=== PATIENT | female | born 1970 | race Native Hawaiian/Other Pacific Islander ===

== ENCOUNTER 2017-12-13 09:36 | Emergency (ER) | payer MEDICAID, OTHER ==
--- NOTE | 2017-12-13 10:12 | C.PDOC ---
Time Seen by Provider: 12/13/17 09:56 Chief Complaint (Nursing): Back Pain Past Medical History Vital Signs: Last Vital Signs Temp 97.5 F L 12/13/17 09:39 Pulse 68 12/13/17 09:39 Resp 17 12/13/17 09:39 BP 189/95 H 12/13/17 09:39 Pulse Ox 98 12/13/17 09:39 - Social History Hx Alcohol Use: No Hx Substance Use: No ED Course And Treatment O2 Sat by Pulse Oximetry: 98 Disposition - Disposition
--- NOTE | 2017-12-13 11:18 | RAD ---
PROCEDURE: Radiographs of the Lumbar Spine. HISTORY: back pain without injury COMPARISON: None available. FINDINGS: BONES: Alignment appears satisfactory. No listhesis. No acute displaced fracture identified. DISC SPACES: Unremarkable. OTHER FINDINGS: None. IMPRESSION: No acute displaced fracture or subluxation identified.
--- NOTE | 2017-12-13 11:19 | C.PDOC ---
History Of Present Illness 47 y/o female with hx of Ulcer that causes her abdominal pain intermittently, presents to ED stating she had pain in neck and upper back 1 week and a half ago. Pt states pain was aching and caused discomfort. She saw her PMD, , 5 days ago; she started taking naprosyn with no relief. Pt states she went for acupuncture 1 day ago and the pain in neck and upper back was improved. Pt currently complains of constant pain in lower back that radiates to right hip. Denies weakness or numbness in the leg. She has no bladder or bowel changes or saddle anesthesia. As per sister, patient's mother 2 years ago and since then the patient has been depressed, experiencing trouble eating and sleeping. She has lost a lot of weight. She no longer gets a menstrual cycle. She has been experiencing SOB on exertion for the past year. Time Seen by Provider: 12/13/17 09:56 Chief Complaint (Nursing): Back Pain History Per: Patient History/Exam Limitations: no limitations Onset/Duration Of Symptoms: Days (11) Current Symptoms Are (Timing): Still Present Quality Of Discomfort: Aching Previous Symptoms: Neck Pain Associated Symptoms: None Recent travel outside of the [place]: No Past Medical History Reviewed: Historical Data, Nursing Documentation, Vital Signs Vital Signs: Last Vital Signs Temp 98.7 F 12/13/17 14:34 Pulse 72 12/13/17 14:34 Resp 18 12/13/17 14:34 BP 163/97 H 12/13/17 14:34 Pulse Ox 100 12/13/17 14:34 - Medical History PMH: Gastritis Other PMH: Ulcer disease Surgical History: No Surg Hx Family History: States: No Known Family Hx - Social History Hx Alcohol Use: No Hx Substance Use: No Review Of Systems Constitutional: Negative for: Fever Cardiovascular: Negative for: Chest Pain Gastrointestinal: Negative for: Nausea, Vomiting, Abdominal Pain, Diarrhea Musculoskeletal: Positive for: Back Pain (lower; radiates to hip) Neurological: Negative for: Weakness, Numbness Physical Exam - Physical Exam Appears: Non-toxic, Other (crying while laying in bed; thin; frail looking; depressed ) Skin: Normal Color, Warm, Dry Head: Atraumatic, Normacephalic Eye(s): bilateral: Normal Inspection Oral Mucosa: Moist Neck: Supple Chest: Symmetrical, No Tenderness Cardiovascular: Rhythm Regular Respiratory: Normal Breath Sounds, No Rales, No Rhonchi, No Wheezing Back: Other (Midline lower back tenderness ) Extremity: Normal ROM (hip; no weakness or sensory lose), No Tenderness, Other ( reflexes hyperreflexia) Neurological/Psych: Oriented x3, Normal Speech, Normal Cognition ED Course And Treatment - Laboratory Results Result Diagrams: 12/13/17 11:17 12/13/17 11:17 Lab Interpretation: Abnormal Interpretation Of Abnormal: CPK 657 O2 Sat by Pulse Oximetry: 98 (RA) Pulse Ox Interpretation: Normal - Other Rad Lumbar Spine X-Ray X-Ray: Viewed By Me, Read By Radiologist Interpretation: PROCEDURE: Radiographs of the Lumbar Spine. HISTORY: back pain without injury. COMPARISON: None available. FINDINGS: BONES: Alignment appears satisfactory. No listhesis. No acute displaced fracture identified. DISC SPACES: Unremarkable. OTHER FINDINGS: None. IMPRESSION: No acute displaced fracture or subluxation identified. Progress Note: I requested evaluation by crisis for possible depression but patient refused to speak with the counselor. She was provided Dr Velázquez's card and advised to call him. Reevaluation Time: 14:50 Reassessment Condition: Improved (Much better after Toradol) Medical Decision Making Medical Decision Making: Ordered Blood work, X-ray of lumber spine and LS spine, and urinalysis. Disposition Counseled Patient/Family Regarding: Studies Performed, Diagnosis, Need For Followup, Rx Given - Disposition Referrals: Shaik Shin MD [Staff Provider] - Disposition: HOME/ ROUTINE Disposition Time: 14:54 Condition: IMPROVED Prescriptions: Cyclobenzaprine HCl 5 mg PO TID PRN #30 tablet PRN Reason: Muscle Spasm Ketorolac Tromethamine [Toradol] 10 mg PO QID PRN #20 tab PRN Reason: Pain, Moderate (4-7) Instructions: Acute Low Back Pain (ED) Forms: [facility] (Dominican) - Clinical Impression Clinical Impression: Low back pain - Scribe Statement The provider has reviewed the documentation as recorded by the Scribe Sarah Paul All medical record entries made by the Scribe were at my direction and personally dictated by me. I have reviewed the chart and agree that the record accurately reflects my personal performance of the history, physical exam, medical decision making, and the department course for this patient. I have also personally directed, reviewed, and agree with the discharge instructions and disposition.
[2017-12-13 11:20] LABS: BASO % 0.5 % (0.0-2.0); EOS % 0.2 % (0.0-4.0); HEMOGLOBIN 12.1 g/dL (11.0-16.0); LYMPH # 0.6 K/uL (1.0-4.3); LYMPH % 14.8 % (20.0-40.0); MEAN CELL VOLUME 67.8 fL (81.0-99.0); MEAN CORPUSCULAR HEMOGLOBIN 21.7 pg (27.0-31.0); MEAN PLATELET VOLUME 8.8 fL (7.2-11.7); MONO # 0.3 K/uL (0.0-0.8); MONO % 6.6 % (0.0-10.0); NEUT # 3.4 K/uL (1.8-7.0); NEUT % 77.9 % (50.0-75.0); RBC 5.59 Mil/uL (3.80-5.20); RED CELL DISTRIBUTION WIDTH 15.1 % (11.5-14.5); WHITE BLOOD COUNT 4.3 K/uL (4.8-10.8)
[2017-12-13 11:34] LABS: ALB/GLOB RATIO 1.4 (1.0-2.1); ALBUMIN 4.4 g/dL (3.5-5.0); ALT/SGPT 31 U/L (9-52); AMYLASE 99 U/L (30-110); AST/SGOT 40 U/L (14-36); BLOOD UREA NITROGEN 12 mg/dL (7-17); CALCIUM 9.4 mg/dl (8.6-10.4); GFR AFRICAN-AMERICAN > 60; GFR NON-AFRICAN AMERICAN > 60
[2017-12-13 12:10] LABS: URINE BILIRUBIN NEGATIVE (NEGATIVE); URINE BLOOD NEGATIVE (NEGATIVE); URINE CLARITY Clear (Clear); URINE COLOR Colorless (YELLOW); URINE GLUCOSE (UA) NORMAL (Normal); URINE LEUKOCYTE ESTERASE NEG Leu/uL (Negative); URINE NITRATE NEGATIVE (NEGATIVE); URINE PROTEIN NEGATIVE (NEGATIVE); URINE UROBILINOGEN NORMAL mg/dL (0.2-1.0)
[2017-12-13] MEDS ORDERED: Sodium Chloride 0.9% 1,000 ML IV ONE (12:30)
[2017-12-13 12:59] VITALS: TEMP 98.7
[2017-12-13 14:35] VITALS: BP 163/97; PULSE 72; RESP 18
[2017-12-13 14:53] VITALS: O2SAT 98
== END 2017-12-13 15:20 | disposition home or self-care (01) ==
LOC: C.ER 09:36
DX: M54.5 Low back pain (principal)
CPT/HCPCS: 72100; 80053; 81001; 82150; 82550; 83735; 85025; 96361; 96374; 99285; J1885; J7040